=== PATIENT | female | born 1955 | race Caucasian/White ===

== ENCOUNTER → 2017-08-22 | Outpatient (CLI) | payer OTHER ==
[~2017-08-22] MED LIST: ASPI81CH; ATOR40TA PO; Dyazide 37.5-21 EACH; FISH1000 PO; GABA100 PO; LISHYD2025 PO; LOSA50
[2017-08-22 15:11] LABS: Alanine Aminotransfer (ALT/SGP 41 U/L (12-78); Albumin, Blood 3.9 g/dL (3.4-5.0); Albumin/Globulin Ratio 1.2 (0.8-1.8); Alk Phos 46 U/L (50-136); Anion Gap 9 mmol/L (6-16); Aspartate Aminotrans (AST/SGOT 16 U/L (12-37); Bilirubin, Total 0.6 mg/dL (0.1-1.0); Blood Urea Nitrogen 23 mg/dL (8-24); Bun/Creatinine Ratio 28.7 (12.0-20.0); CHOL/HDL RATIO 3.4; CO2, Blood 24 mmol/L (21-32); Calcium, Blood 8.6 mg/dL (8.5-10.1); Chloride, Blood 102 mmol/L (98-108); Cholesterol 210 mg/dL (50-200); Globulin, Blood 3.3 g/dL (2.2-4.0); Glomerular Filtration Rate >60 (60-); Glucose, Blood 94 mg/dL (70-99); HDL Cholesterol 61 mg/dL (>39); Low Density Lipoprotein Chol 123 mg/dL (0-110); Potassium, Blood 4.6 mmol/L (3.5-5.5); Sodium, Blood 135 mmol/L (136-145); Total Protein, Blood 7.2 g/dL (6.4-8.2); Triglycerides 130 mg/dL (30-160); Very Low Density Lipoprot Chol 26 mg/dL (6-32)
== END | disposition home or self-care (01) ==
LOC: LAB 13:55
PROVIDERS: Hospitalist
DX: E78.5 Hyperlipidemia, unspecified (principal); I10 Essential (primary) hypertension
CPT/HCPCS: 80053; 80061

== ENCOUNTER 2018-03-03 09:46 | Day surgery (SDC) | payer OTHER ==
[~2018-03-03 09:46] MED LIST changes: -ASPI81CH; -Dyazide 37.5-21 EACH; -LOSA50
[2018-03-03] MEDS ORDERED: LOSA50 (09:56)
[2018-03-03] MEDS ORDERED: Dyazide 37.5-21 EACH (09:57)
[2018-03-03] MEDS ORDERED: ASPI81CH (10:03)
== END 2018-03-03 11:31 | disposition home or self-care (01) ==
LOC: ORSCSDS 09:46
PROVIDERS: Internal Medicine Gastroenterology
PROC: 0DBL8ZX Excision of Transverse Colon, Via Natural or Artificial Opening Endoscopic, Diagnostic (ICD-10-PCS; principal; 2018-03-03 10:45)
DX: Z12.11 Encounter for screening for malignant neoplasm of colon (principal); D12.3 Benign neoplasm of transverse colon; K64.1 Second degree hemorrhoids; K57.30 Diverticulosis of large intestine without perforation or abscess without bleeding; I10 Essential (primary) hypertension; E03.9 Hypothyroidism, unspecified; Z79.899 Other long term (current) drug therapy
CPT/HCPCS: J7120

== ENCOUNTER → 2019-10-15 | Outpatient (CLI) | payer OTHER ==
[~2019-10-15] MED LIST changes: +ASPI81CH; +Dyazide 37.5-21 EACH; +LOSA50
[2019-10-15 15:53] LABS: Albumin, Blood 4.1 g/dL (3.4-5.0); Anion Gap 7 mmol/L (6-16); Blood Urea Nitrogen 19 mg/dL (8-24); CO2, Blood 27 mmol/L (21-32); Calcium, Blood 9.2 mg/dL (8.5-10.1); Chloride, Blood 101 mmol/L (98-108); Glucose, Blood 101 mg/dL (70-99); Potassium, Blood 4.3 mmol/L (3.5-5.5); Sodium, Blood 135 mmol/L (136-145)
[2019-10-15 16:01] LABS: Alanine Aminotransfer (ALT/SGP 38 U/L (12-78); Albumin/Globulin Ratio 1.2 (0.8-1.8); Alk Phos 45 U/L (50-136); Aspartate Aminotrans (AST/SGOT 18 U/L (12-37); Bilirubin, Total 0.6 mg/dL (0.1-1.0); Bun/Creatinine Ratio 25.1 (12.0-20.0); Creatinine, Blood 0.76 mg/dL (0.40-1.00); Globulin, Blood 3.3 g/dL (2.2-4.0); Glomerular Filtration Rate >60 (60-); Total Protein, Blood 7.4 g/dL (6.4-8.2)
== END | disposition home or self-care (01) ==
LOC: LAB SHORT 09:25 → LAB 09:25
PROVIDERS: Hospitalist
DX: R10.11 Right upper quadrant pain (principal)
CPT/HCPCS: 80053

== ENCOUNTER 2021-05-30 18:47 | Inpatient (IN) | payer MEDICARE ==
[~2021-05-30] VITALS: Ht 165.1 cm; Wt 63.5 kg
[~2021-05-30 18:47] MED LIST changes: -AMLO5 PO; -Acetaminophen650 M1 PO; -CALCIUM MAGNES1 EAC1 PO; -CATAPRES0.1 MG PO; -LISI20 PO; -LOSA25; -Lovastatin20 MG; -Lovastatin20 MG PO; -MELATONIN10 M4 PO; -MIRALAX17 GM PO; -Preparation H26 GM PR; -Prinivil10 MG; -SODCHL1 PO
[2021-05-30 19:22] LABS: BASOPHILS ABSOLUTE AUTO 0.07 K/mm3 (0.00-0.23); BASOPHILS PERCENT AUTO 1 % (0-2); EOSINOPHILS ABSOLUTE AUTO 0.25 K/mm3 (0.00-0.68); EOSINOPHILS PERCENT AUTO 2 % (0-6); Hematocrit 38.1 % (33.0-51.0); Hemoglobin 13.7 g/dL (11.5-16.0); IMMATURE GRAN ABSOLUTE AUTO 0.05 K/mm3 (0.00-0.10); IMMATURE GRAN PERCENT AUTO 1 % (0-1); LYMPHOCYTES ABSOLUTE AUTO 2.73 K/mm3 (0.84-5.20); LYMPHOCYTES PERCENT AUTO 26 % (21-46); MONOCYTES PERCENT AUTO 9 % (4-13); Mean Corpuscular HGB 31.2 pg (26.0-34.0); Mean Corpuscular Volume 87 fL (80-100); Mean Platelet Volume 9.5 fL (9.1-12.4); NEUTROPHILS PERCENT AUTO 62 % (41-73); Platelet Count 352 K/mm3 (150-400); RDW Coefficient Variation 11.6 % (11.7-14.2); RDW Standard Deviation 37.2 fL (35.1-46.3); Red Blood Cell Count 4.39 M/mm3 (3.80-5.20)
[2021-05-30 19:42] LABS: Albumin, Blood 4.3 g/dL (3.4-5.0); Albumin/Globulin Ratio 1.2 (0.8-1.8); Bilirubin, Total 0.6 mg/dL (0.1-1.0); Bun/Creatinine Ratio 30.5 (12.0-20.0); Calcium, Blood 9.9 mg/dL (8.5-10.1); Creatinine, Blood 0.95 mg/dL (0.40-1.00); Globulin, Blood 3.5 g/dL (2.2-4.0); Potassium, Blood 3.5 mmol/L (3.5-5.5); Total Protein, Blood 7.8 g/dL (6.4-8.2)
[2021-05-30] MEDS ORDERED: CATAPRES0.1 MG PO (21:12)
[2021-05-30] MEDS ORDERED: Prinivil10 MG (21:13)
[2021-05-30] MEDS ORDERED: LOSA25 (21:13)
[2021-05-30] MEDS ORDERED: Lovastatin20 MG (21:14)
[2021-05-30 22:16] LABS: Source, Urine Clean Catch
[2021-05-30 22:17] LABS: Bilirubin, Urine Neg (Neg); Glucose Qualitative, Urine Neg (Neg); Ketones, Urine Neg (Neg); Leukocyte Esterase, Urine Neg (Neg); Nitrite, Urine Neg (Neg); Protein, Urine Neg (Neg); Specific Gravity, Urine 1.015 (1.003-1.022); Urobilinogen, Urine NORM (Normal)
[2021-05-30 22:18] LABS: Blood, Urine Neg (Neg)
[2021-05-30 23:02] LABS: Appearance, Urine Clear (Clear); Color, Urine Yellow (P-Yellow)
[2021-05-31 01:30] LABS: Anion Gap 11 mmol/L (6-16); Blood Urea Nitrogen 25 mg/dL (8-24); Bun/Creatinine Ratio 32.8 (12.0-20.0); CO2, Blood 29 mmol/L (21-32); Calcium, Blood 8.9 mg/dL (8.5-10.1); Chloride, Blood 82 mmol/L (98-108); Creatinine, Blood 0.76 mg/dL (0.40-1.00); Free Thyroxine 1.23 ng/dL (0.70-1.60); Glomerular Filtration Rate >60 (60-); Glucose, Blood 108 mg/dL (70-99); Sodium, Blood 122 mmol/L (136-145)
[2021-05-31 09:39] LABS: BASOPHILS ABSOLUTE AUTO 0.05 K/mm3 (0.00-0.23); BASOPHILS PERCENT AUTO 1 % (0-2); EOSINOPHILS ABSOLUTE AUTO 0.17 K/mm3 (0.00-0.68); EOSINOPHILS PERCENT AUTO 2 % (0-6); Hematocrit 37.6 % (33.0-51.0); Hemoglobin 13.2 g/dL (11.5-16.0); IMMATURE GRAN ABSOLUTE AUTO 0.03 K/mm3 (0.00-0.10); IMMATURE GRAN PERCENT AUTO 0 % (0-1); LYMPHOCYTES ABSOLUTE AUTO 1.84 K/mm3 (0.84-5.20); LYMPHOCYTES PERCENT AUTO 22 % (21-46); MONOCYTES ABSOLUTE AUTO 0.89 K/mm3 (0.16-1.47); MONOCYTES PERCENT AUTO 11 % (4-13); Mean Corpuscular HGB 30.8 pg (26.0-34.0); Mean Corpuscular HGB Conc 35.1 g/dL (31.5-36.5); Mean Corpuscular Volume 88 fL (80-100); Mean Platelet Volume 9.5 fL (9.1-12.4); NEUTROPHILS ABSOLUTE AUTO 5.33 K/mm3 (1.96-9.15); NEUTROPHILS PERCENT AUTO 64 % (41-73); Platelet Count 315 K/mm3 (150-400); RDW Coefficient Variation 11.7 % (11.7-14.2); RDW Standard Deviation 37.8 fL (35.1-46.3); Red Blood Cell Count 4.28 M/mm3 (3.80-5.20); White Blood Cell Count 8.31 K/mm3 (4.00-11.30)
[2021-05-31 10:06] LABS: Alanine Aminotransfer (ALT/SGP 31 U/L (12-78); Albumin, Blood 3.8 g/dL (3.4-5.0); Albumin/Globulin Ratio 1.1 (0.8-1.8); Alk Phos 47 U/L (50-136); Anion Gap 9 mmol/L (6-16); Aspartate Aminotrans (AST/SGOT 18 U/L (12-37); Bilirubin, Total 0.6 mg/dL (0.1-1.0); Blood Urea Nitrogen 18 mg/dL (8-24); Bun/Creatinine Ratio 26.3 (12.0-20.0); CO2, Blood 28 mmol/L (21-32); Calcium, Blood 8.8 mg/dL (8.5-10.1); Chloride, Blood 87 mmol/L (98-108); Creatinine, Blood 0.69 mg/dL (0.40-1.00); Globulin, Blood 3.5 g/dL (2.2-4.0); Glomerular Filtration Rate >60 (60-); Glucose, Blood 105 mg/dL (70-99); Potassium, Blood 3.1 mmol/L (3.5-5.5); Sodium, Blood 124 mmol/L (136-145); Total Protein, Blood 7.3 g/dL (6.4-8.2)
[2021-05-31 16:20] LABS: Anion Gap 8 mmol/L (6-16); Blood Urea Nitrogen 23 mg/dL (8-24); Bun/Creatinine Ratio 27.5 (12.0-20.0); CO2, Blood 28 mmol/L (21-32); Calcium, Blood 8.7 mg/dL (8.5-10.1); Chloride, Blood 88 mmol/L (98-108); Creatinine, Blood 0.84 mg/dL (0.40-1.00); Glomerular Filtration Rate >60 (60-); Glucose, Blood 102 mg/dL (70-99); Potassium, Blood 4.1 mmol/L (3.5-5.5); Sodium, Blood 124 mmol/L (136-145)
[2021-05-31] MEDS ORDERED: MELATONIN10 M4 PO (17:12)
[2021-05-31] MEDS ORDERED: CALCIUM MAGNES1 EAC1 PO (17:13)
--- NOTE | 2021-05-31 19:21 | NUR ---
SHIFT SUMMARY PT A&OX4, VSS, KAYA PO, VOIDING WELL, SBA TO BRP, USES CALL LIGHT APPROPRIATELY. REPORT GIVEN TO DERIC TURNER.
--- NOTE | 2021-05-31 19:28 | NUR ---
Pt hypertensive. Dr. Rivera covering. Orders to decrease cont. fluids to 75ml/hr for two bags. Will administer to pt. WCTM
[2021-06-01 01:11] LABS: Anion Gap 7 mmol/L (6-16); Blood Urea Nitrogen 24 mg/dL (8-24); Bun/Creatinine Ratio 27.8 (12.0-20.0); CO2, Blood 26 mmol/L (21-32); Calcium, Blood 8.6 mg/dL (8.5-10.1); Chloride, Blood 92 mmol/L (98-108); Creatinine, Blood 0.86 mg/dL (0.40-1.00); Glomerular Filtration Rate >60 (60-); Glucose, Blood 114 mg/dL (70-99); Potassium, Blood 4.3 mmol/L (3.5-5.5); Sodium, Blood 125 mmol/L (136-145)
--- NOTE | 2021-06-01 05:17 | NUR ---
SHIFT SUMMARY Pt A/Ox4, hypertensive at start of shift, but controlled with scheduled BP medications. Slightly bradycardic at times. Up ad tevin. C/O slight headache overnight, but refusing any PRN medications for pain. Voiding without difficulty. Bowel reg given to pt. Mx loose BM's per pt. Pt states she is to have surgery for her hemorroids July 09, but would like to have surgery during this stay. Will pass onto day RN for daily rounds with doctors to make them aware and for possible intervention. Preperation H given per EMAR for uncomfort. Continuous fluids given throughout the night per EMAR. WCTM
[2021-06-01 06:32] LABS: Anion Gap 7 mmol/L (6-16); Blood Urea Nitrogen 20 mg/dL (8-24); Bun/Creatinine Ratio 26.2 (12.0-20.0); CO2, Blood 25 mmol/L (21-32); Calcium, Blood 8.6 mg/dL (8.5-10.1); Chloride, Blood 93 mmol/L (98-108); Creatinine, Blood 0.76 mg/dL (0.40-1.00); Glomerular Filtration Rate >60 (60-); Glucose, Blood 116 mg/dL (70-99); Magnesium, Blood 1.7 mg/dL (1.6-2.4); Sodium, Blood 125 mmol/L (136-145)
[2021-06-01 13:49] LABS: Anion Gap 7 mmol/L (6-16); Blood Urea Nitrogen 18 mg/dL (8-24); Bun/Creatinine Ratio 23.8 (12.0-20.0); CO2, Blood 25 mmol/L (21-32); Calcium, Blood 8.6 mg/dL (8.5-10.1); Chloride, Blood 93 mmol/L (98-108); Creatinine, Blood 0.76 mg/dL (0.40-1.00); Glomerular Filtration Rate >60 (60-); Glucose, Blood 107 mg/dL (70-99); Potassium, Blood 4.9 mmol/L (3.5-5.5); Sodium, Blood 125 mmol/L (136-145)
--- NOTE | 2021-06-01 14:24 | NUR ---
Echocardiogram completed.
--- NOTE | 2021-06-01 16:03 | NUR ---
SHIFT SUMMARY PT A&OX4, VSS/RA, TELE NSR @ 60 BPM, VOIDING WELL, BM X1, SHOWERED TODAY, AMBULATING TO BRP WITH FWW, ENC PT TO ALSO CALL FOR SBA WHEN FEELING DIZZY/LIGHTHEADED. NS @ 100 MLS/HR 1 BAG INFUSING NOW, ECHO COMPLETE, UA COMPLETE, ORTHOSTATIC BP COMPLETE. WILL REPORT TO ONCOMING NOC RN.
[2021-06-01 18:29] LABS: Anion Gap 4 mmol/L (6-16); Blood Urea Nitrogen 19 mg/dL (8-24); CO2, Blood 25 mmol/L (21-32); Calcium, Blood 8.6 mg/dL (8.5-10.1); Chloride, Blood 96 mmol/L (98-108); Creatinine, Blood 0.76 mg/dL (0.40-1.00); Glomerular Filtration Rate >60 (60-); Glucose, Blood 103 mg/dL (70-99); Potassium, Blood 4.5 mmol/L (3.5-5.5); Sodium, Blood 125 mmol/L (136-145)
--- NOTE | 2021-06-01 19:45 | NUR ---
Pt HR 55. Bradycardic on the monitor. BP 126/74. Dr. Polo made aware. Orders to hold PM dose of catapres at this time. WCTM.
--- NOTE | 2021-06-02 02:26 | NUR ---
Pt refused 2100 dose of melatonin. Now she wants the medication. 2100 dose of melatonin given now. Pt agitated that RN needed to hang more 0.9 NS per EMAR order at this time. Educated the patient on its importance to increase her sodium levels. Pt now agrees to a new bag. WCTM
--- NOTE | 2021-06-02 04:14 | NUR ---
Pt hypertensive/bradycardic. Dr. Kamara made aware. Orders to give morning dose of catapres now. WCTM
[2021-06-02 04:43] LABS: Albumin, Blood 3.1 g/dL (3.4-5.0); Anion Gap 6 mmol/L (6-16); Blood Urea Nitrogen 14 mg/dL (8-24); Bun/Creatinine Ratio 21.2 (12.0-20.0); CO2, Blood 24 mmol/L (21-32); Calcium, Blood 8.4 mg/dL (8.5-10.1); Chloride, Blood 101 mmol/L (98-108); Creatinine, Blood 0.66 mg/dL (0.40-1.00); Glomerular Filtration Rate >60 (60-); Glucose, Blood 92 mg/dL (70-99); Magnesium, Blood 1.8 mg/dL (1.6-2.4); Phosphorus, Blood 2.4 mg/dL (2.5-4.9); Potassium, Blood 4.5 mmol/L (3.5-5.5); Sodium, Blood 131 mmol/L (136-145)
[2021-06-02] MEDS ORDERED: LISI20 PO (13:30)
[2021-06-02] MEDS ORDERED: CATAPRES0.1 MG PO (13:30)
[2021-06-02] MEDS ORDERED: Lovastatin20 MG PO (13:30)
[2021-06-02] MEDS ORDERED: Acetaminophen650 M1 PO (13:31)
[2021-06-02] MEDS ORDERED: AMLO5 PO (13:31)
[2021-06-02] MEDS ORDERED: MIRALAX17 GM PO (13:34)
[2021-06-02] MEDS ORDERED: Preparation H26 GM PR (13:34)
[2021-06-02] MEDS ORDERED: SODCHL1 PO (13:36)
--- NOTE | 2021-06-02 14:03 | NUR ---
DISCHARGE SUMMARY- PT D/C HOME. PROVIDED DISCHARGE INSTRUCTIONS, PT VERBALIZED UNDERSTANDING. ALL BELONGINGS SENT HOME WITH PT. PT IN NO APPARENT DISTRESS. WILL CONTINUE TO MONITOR UNTIL D/C.
== END 2021-06-02 14:25 | disposition home or self-care (01) | DRG 641 ==
LOC: ER 18:47 → ERHOLD 18:48 → ER 23:11 → ERHOLD 05-31 15:02 → SURS 05-31 16:45
PROVIDERS: Family Medicine; Internal Medicine; Physician Assistant; Student in an Organized Health Care Education/Training Program; ADMIT Internal Medicine
DX: E87.1 Hypo-osmolality and hyponatremia (principal); E86.0 Dehydration; I10 Essential (primary) hypertension; G62.9 Polyneuropathy, unspecified; E78.5 Hyperlipidemia, unspecified; R29.6 Repeated falls; K59.00 Constipation, unspecified; I16.0 Hypertensive urgency; E87.6 Hypokalemia; I35.0 Nonrheumatic aortic (valve) stenosis; Z90.89 Acquired absence of other organs; Z98.890 Other specified postprocedural states; Z88.8 Allergy status to other drugs, medicaments and biological substances; Z79.899 Other long term (current) drug therapy
CPT/HCPCS: 36415; 70450; 71045; 80048; 80053; 80069; 81003; 82306; 82533; 82607; 82746; 83735; 83930; 83935; 84300; 84439; 84443; 85025; 93005; 93010; 93306; 94760; 96361; 96372; 96374; 96375; 97112; 97116; 97161; 97530; 99285-25; A9270; J0360; J1650; J2405; J3010; J3475; J7030; J7060

== ENCOUNTER → 2021-05-30 | Outpatient (CLI) | payer MEDICARE ==
[~2021-05-30] MED LIST changes: +AMLO5 PO; +Acetaminophen650 M1 PO; +CALCIUM MAGNES1 EAC1 PO; +CATAPRES0.1 MG PO; +LISI20 PO; +LOSA25; +Lovastatin20 MG; +Lovastatin20 MG PO; +MELATONIN10 M4 PO; +MIRALAX17 GM PO; +Preparation H26 GM PR; +Prinivil10 MG; +SODCHL1 PO
[2021-05-30 15:18] LABS: BASOPHILS ABSOLUTE AUTO 0.03 K/mm3 (0.00-0.23); BASOPHILS PERCENT AUTO 1 % (0-2); EOSINOPHILS ABSOLUTE AUTO 0.12 K/mm3 (0.00-0.68); EOSINOPHILS PERCENT AUTO 2 % (0-6); Hematocrit 39.3 % (33.0-51.0); IMMATURE GRAN ABSOLUTE AUTO 0.03 K/mm3 (0.00-0.10); IMMATURE GRAN PERCENT AUTO 1 % (0-1); LYMPHOCYTES ABSOLUTE AUTO 2.29 K/mm3 (0.84-5.20); LYMPHOCYTES PERCENT AUTO 35 % (21-46); MONOCYTES ABSOLUTE AUTO 0.63 K/mm3 (0.16-1.47); MONOCYTES PERCENT AUTO 10 % (4-13); Mean Corpuscular HGB Conc 35.6 g/dL (31.5-36.5); Mean Corpuscular Volume 87 fL (80-100); Mean Platelet Volume 10.2 fL (9.1-12.4); NEUTROPHILS ABSOLUTE AUTO 3.41 K/mm3 (1.96-9.15); NEUTROPHILS PERCENT AUTO 52 % (41-73); Platelet Count 338 K/mm3 (150-400); RDW Coefficient Variation 11.8 % (11.7-14.2); RDW Standard Deviation 37.7 fL (35.1-46.3); Red Blood Cell Count 4.52 M/mm3 (3.80-5.20); White Blood Cell Count 6.51 K/mm3 (4.00-11.30)
[2021-05-30 16:01] LABS: Free Thyroxine 1.21 ng/dL (0.70-1.60); Thyroid Stimulating Hormone 0.518 uIU/mL (0.360-4.800)
[2021-05-30 16:06] LABS: Alanine Aminotransfer (ALT/SGP 34 U/L (12-78); Albumin, Blood 4.1 g/dL (3.4-5.0); Albumin/Globulin Ratio 1.1 (0.8-1.8); Alk Phos 49 U/L (50-136); Anion Gap 7 mmol/L (6-16); Aspartate Aminotrans (AST/SGOT 21 U/L (12-37); Bilirubin, Total 0.7 mg/dL (0.1-1.0); Blood Urea Nitrogen 20 mg/dL (8-24); CO2, Blood 30 mmol/L (21-32); Calcium, Blood 9.6 mg/dL (8.5-10.1); Chloride, Blood 82 mmol/L (98-108); Creatinine, Blood 0.74 mg/dL (0.40-1.00); Globulin, Blood 3.8 g/dL (2.2-4.0); Glomerular Filtration Rate >60 (60-); Glucose, Blood 104 mg/dL (70-99); Potassium, Blood 3.2 mmol/L (3.5-5.5); Sodium, Blood 119 mmol/L (136-145); Total Protein, Blood 7.9 g/dL (6.4-8.2)
== END | disposition home or self-care (01) ==
LOC: LAB SHORT 10:30 → LAB 10:30
PROVIDERS: Hospitalist
DX: R41.3 Other amnesia (principal)
CPT/HCPCS: 80053; 84439; 84443; 85025; 85651; 86592

== ENCOUNTER → 2021-06-28 | Outpatient (CLI) | payer MEDICARE ==
[~2021-06-28] MED LIST changes: +AMLO5 PO; +Acetaminophen650 M1 PO; +CALCIUM MAGNES1 EAC1 PO; +CATAPRES0.1 MG PO; +LISI20 PO; +LOSA25; +Lovastatin20 MG; +Lovastatin20 MG PO; +MELATONIN10 M4 PO; +MIRALAX17 GM PO; +Preparation H26 GM PR; +Prinivil10 MG; +SODCHL1 PO
[2021-06-29 09:11] LABS: CALCIUM, SERUM 9.2 mg/dL (8.7-10.3); CREATININE, SERUM 0.72 mg/dL (0.57-1.00); POTASSIUM, SERUM 4.5 mmol/L (3.5-5.2)
== END | disposition home or self-care (01) ==
LOC: LAB SHORT 11:20
PROVIDERS: Hospitalist
DX: E87.1 Hypo-osmolality and hyponatremia (principal)
CPT/HCPCS: 80048

== ENCOUNTER → 2021-12-26 | Outpatient (CLI) | payer MEDICARE ==
[2021-12-26 16:09] LABS: Albumin, Blood 4.4 g/dL (3.4-5.0); Albumin/Globulin Ratio 1.2 (0.8-1.8); Bilirubin, Total 0.6 mg/dL (0.1-1.0); Bun/Creatinine Ratio 25.9 (12.0-20.0); Calcium, Blood 9.5 mg/dL (8.5-10.1); Creatinine, Blood 0.74 mg/dL (0.40-1.00); Globulin, Blood 3.7 g/dL (2.2-4.0); Total Protein, Blood 8.1 g/dL (6.4-8.2)
== END | disposition home or self-care (01) ==
LOC: LAB 11:00 → LAB SHORT 11:00
PROVIDERS: Hospitalist
DX: E87.1 Hypo-osmolality and hyponatremia (principal); I10 Essential (primary) hypertension
CPT/HCPCS: 80053

== ENCOUNTER → 2022-06-06 | Outpatient (CLI) | payer MEDICARE ==
[2022-06-06 17:30] LABS: Bun/Creatinine Ratio 23.3 (12.0-20.0); Calcium, Blood 9.2 mg/dL (8.5-10.1); Creatinine, Blood 0.77 mg/dL (0.40-1.00); Potassium, Blood 3.9 mmol/L (3.5-5.5)
== END | disposition home or self-care (01) ==
LOC: LAB SHORT 12:15 → LAB 12:15
PROVIDERS: Hospitalist
DX: E87.1 Hypo-osmolality and hyponatremia (principal)
CPT/HCPCS: 80048

== ENCOUNTER → 2023-04-09 | Outpatient (CLI) | payer MEDICARE | END | disposition home or self-care (01) | LOC: LAB SHORT 12:00 → LAB 12:00 | DX: R30.0 Dysuria (principal) | CPT/HCPCS: 87086 ==

== ENCOUNTER 2023-06-26 09:15 | Day surgery (SDC) | payer OTHER ==
[~2023-06-26] VITALS: Ht 165.1 cm; Wt 69.4 kg
[2023-06-26] VITALS (8 sets, daily range): BP systolic 146–166; BP diastolic 53–78
[~2023-06-26 09:15] MED LIST changes: +ASPI81CH PO; +ATOR20 PO; +C COMPLEX1000 M1 PO; +COQ1050 MG PO; +EZET10 PO; +MAGNESIUM OXID500 MG PO; +MELATONIN5 M1 PO; +MULVITA PO; +TYLENOL PM PO; +VITAMIN B125000 MC1 PO; +VITAMIN D310 MC4 PO
--- NOTE | 2023-06-26 10:28 | NUR ---
06/26/23 1028 Aleksandar Puente PT TO OR FOR COLONOSCOPY IN CONJUNCTION WITH HEMORROIDECTOMY PER DR. PINEDO, GENERAL ANESTHESIA PER DR. GLASGOW
--- NOTE | 2023-06-26 11:50 | NUR ---
PT TO DAY SURGERY STEP DOWN FROM PACU, HAD COLONOSCOPY AND HEMORROIDECTOMY. PT HAS PETROLIUM DRESSING COVERED WITH GUAZE AND IS C/D/I WITH KNIT UNDERWEAR ON TOP. PT IS AWAKE, ALERT AND ORIENTED; ABLE TO MOVE SELF IN BED. VSS. PT HAS NO COMPLAINTS.
--- NOTE | 2023-06-26 12:21 | NUR ---
PT TOLERATING PO FLUIDS WELL. Discharge instructions reviewed with patient. Patient verbalizes understanding. Copy given to patient to take home.
--- NOTE | 2023-06-26 12:34 | NUR ---
Discharge instructions reviewed with patient. Patient verbalizes understanding. Copy given to patient to take home. Pt states she has her own netta bottle at home and declines the one we have for her.
--- NOTE | 2023-06-26 12:42 | NUR ---
BP REMAINS CONSISTENT THROUGHOUT PT STAY
--- NOTE | 2023-06-26 12:50 | NUR ---
Patient up to Ambulate independently. Gait steady.
--- NOTE | 2023-06-26 12:53 | NUR ---
PT UP TO VOID Patient States Post-Procedure ride home has been arranged.
== END 2023-06-26 13:00 | disposition home or self-care (01) ==
LOC: ORSCMMR 09:15 → ORD 11:00 → ORSCMMR 11:00
PROVIDERS: Surgery
PROC: 0DBK8ZX Excision of Ascending Colon, Via Natural or Artificial Opening Endoscopic, Diagnostic (ICD-10-PCS; principal; 2023-06-26 11:00)
PROC: 06BY0ZC Excision of Hemorrhoidal Plexus, Open Approach (ICD-10-PCS; principal; 2023-06-26 11:00)
DX: K62.5 Hemorrhage of anus and rectum (principal); Z86.010 Personal history of colon polyps; D12.2 Benign neoplasm of ascending colon; K64.8 Other hemorrhoids; K64.4 Residual hemorrhoidal skin tags; I10 Essential (primary) hypertension; I25.10 Atherosclerotic heart disease of native coronary artery without angina pectoris; Z79.899 Other long term (current) drug therapy; Z79.82 Long term (current) use of aspirin
CPT/HCPCS: 88304; 88305; J1100; J1885; J2250; J2405; J2704; J3010; J7120

== ENCOUNTER → 2024-09-02 | Outpatient (CLI) | payer OTHER ==
[~2024-09-02] MED LIST changes: +AMOCLA875 PO; +DICY20 PO; +HYDR1TAB94 PO
[2024-09-02 14:29] LABS: BASOPHILS ABSOLUTE AUTO 0.06 K/mm3 (0.00-0.23); BASOPHILS PERCENT AUTO 1 % (0-2); EOSINOPHILS ABSOLUTE AUTO 0.25 K/mm3 (0.00-0.68); EOSINOPHILS PERCENT AUTO 4 % (0-6); Hematocrit 38.5 % (33.0-51.0); IMMATURE GRAN ABSOLUTE AUTO 0.02 K/mm3 (0.00-0.10); IMMATURE GRAN PERCENT AUTO 0 % (0-1); LYMPHOCYTES ABSOLUTE AUTO 2.74 K/mm3 (0.84-5.20); LYMPHOCYTES PERCENT AUTO 41 % (21-46); MONOCYTES ABSOLUTE AUTO 0.56 K/mm3 (0.16-1.47); MONOCYTES PERCENT AUTO 8 % (4-13); Mean Corpuscular HGB Conc 33.8 g/dL (31.5-36.5); Mean Corpuscular Volume 92 fL (80-100); Mean Platelet Volume 10.5 fL (9.1-12.4); NEUTROPHILS PERCENT AUTO 46 % (41-73); Platelet Count 298 K/mm3 (150-400); RDW Coefficient Variation 13.8 % (11.7-14.2); RDW Standard Deviation 46.7 fL (35.1-46.3); Red Blood Cell Count 4.19 M/mm3 (3.80-5.20); White Blood Cell Count 6.73 K/mm3 (4.00-11.30)
[2024-09-02 15:39] LABS: Albumin, Blood 4.2 g/dL (3.4-5.0); Albumin/Globulin Ratio 1.4 (0.8-1.8); Bilirubin, Total 0.8 mg/dL (0.1-1.0); Bun/Creatinine Ratio 31.2 (12.0-20.0); Calcium, Blood 9.3 mg/dL (8.5-10.1); Creatinine, Blood 0.74 mg/dL (0.40-1.00); Globulin, Blood 2.9 g/dL (2.2-4.0); Potassium, Blood 4.3 mmol/L (3.5-5.5); Total Protein, Blood 7.1 g/dL (6.4-8.2)
== END | disposition home or self-care (01) ==
LOC: LAB SHORT 13:41 → LAB 13:41
PROVIDERS: Hospitalist
DX: R10.9 Unspecified abdominal pain (principal)
CPT/HCPCS: 80053; 85025

== ENCOUNTER → 2024-12-31 | Outpatient (CLI) | payer OTHER ==
[2024-12-31 20:26] LABS: Anion Gap 9.0 mmol/L (3-11); Blood Urea Nitrogen 20.0 mg/dL (8-24); CO2, Blood 26.0 mmol/L (21-32); Calcium, Blood 9.1 mg/dL (8.5-10.1); Chloride, Blood 107.0 mmol/L (98-108); Creatinine, Blood 0.66 mg/dL (0.40-1.00); Glucose, Blood 131.0 mg/dL (70-99); Potassium, Blood 3.6 mmol/L (3.5-5.5); Sodium, Blood 138.0 mmol/L (136-145)
== END ==
LOC: LAB 17:19 → LAB SHORT 17:19
PROVIDERS: Hospitalist
DX: E87.1 Hypo-osmolality and hyponatremia (principal)
CPT/HCPCS: 80048

== ENCOUNTER → 2025-06-09 | Outpatient (CLI) | payer OTHER ==
[2025-06-09 19:49] LABS: BASOPHILS ABSOLUTE AUTO 0.04 K/mm3 (0.00-0.23); BASOPHILS PERCENT AUTO 1 % (0-2); EOSINOPHILS ABSOLUTE AUTO 0.21 K/mm3 (0.00-0.68); EOSINOPHILS PERCENT AUTO 3 % (0-6); Hematocrit 41.2 % (33.0-51.0); Hemoglobin 13.9 g/dL (11.5-16.0); IMMATURE GRAN ABSOLUTE AUTO 0.03 K/mm3 (0.00-0.10); IMMATURE GRAN PERCENT AUTO 0 % (0-1); LYMPHOCYTES ABSOLUTE AUTO 2.48 K/mm3 (0.84-5.20); LYMPHOCYTES PERCENT AUTO 35 % (21-46); MONOCYTES ABSOLUTE AUTO 0.73 K/mm3 (0.16-1.47); MONOCYTES PERCENT AUTO 10 % (4-13); Mean Corpuscular HGB Conc 33.7 g/dL (31.5-36.5); Mean Corpuscular Volume 89 fL (80-100); NEUTROPHILS ABSOLUTE AUTO 3.66 K/mm3 (1.96-9.15); NEUTROPHILS PERCENT AUTO 51 % (41-73); NRBC ABSOLUTE 0.00 K/mm3 (0.00-0.02); NRBC Auto 0.0 /100 WBC (0.0-0.2); Platelet Count 260 K/mm3 (150-400); RDW Coefficient Variation 14.6 % (11.7-14.2); RDW Standard Deviation 47.2 fL (35.1-46.3)
[2025-06-09 20:48] LABS: Alanine Aminotransfer (ALT/SGP 39.0 U/L (12-78); Albumin, Blood 3.8 g/dL (3.4-5.0); Albumin/Globulin Ratio 1.2 (0.8-1.8); Anion Gap 10.0 mmol/L (3-11); Aspartate Aminotrans (AST/SGOT 17.0 U/L (12-37); Bilirubin, Total 0.6 mg/dL (0.1-1.0); Blood Urea Nitrogen 18.0 mg/dL (8-24); CO2, Blood 27.0 mmol/L (21-32); Calcium, Blood 9.0 mg/dL (8.5-10.1); Chloride, Blood 99.0 mmol/L (98-108); Creatinine, Blood 0.78 mg/dL (0.40-1.00); Globulin, Blood 3.2 g/dL (2.2-4.0); Glucose, Blood 94.0 mg/dL (70-99); Potassium, Blood 4.4 mmol/L (3.5-5.5); Sodium, Blood 132.0 mmol/L (136-145); Total Protein, Blood 7.0 g/dL (6.4-8.2)
== END | disposition home or self-care (01) ==
LOC: LAB SHORT 14:00 → LAB 14:00
PROVIDERS: Hospitalist
DX: I10 Essential (primary) hypertension (principal)
CPT/HCPCS: 80053; 85025